=== PATIENT | female | born 1960 | race Caucasian/White ===

== ENCOUNTER → 2016-11-07 | Outpatient (CLI) | payer OTHER ==
--- NOTE | 2016-11-07 21:10 | DI ---
CERVICAL SPINE SERIES, 11/07/2016 9:18 AM: Clinical History: Cervical pain. Previous Exam: 07/24/2016. An upright lateral view and upright lateral flexion and extension views are submitted. The patient is status post anterior fusions at C4-5 and C5-6. There has been reabsorption of portions of the bone g raft cages at both levels in the fusions may not be solid. The cervical disc spaces are normal. There is anterior subluxation of C3 on C4 by 2 mm in the neutral and flexion position and this is reduced with extension indicating there is motion at this level. C1 articulates normally with C2 and the occi put. Prevertebral soft tissue planes are normal. Readin. Status post anterior fusions at C4-5 and C5-6. There has been progressive reabsorption of the bon e graft cages. The effusions may not be solid. 2. There is a normal disc space at C3-4 but there is anterior subluxation of C3 on C4 by 2 mm and th is is reduced with extension indicating there is motion at this level.
== END ==
LOC: MOB RAD 09:19
PROVIDERS: ATTEND Neurological Surgery
DX: M54.2 Cervicalgia (principal); Z98.1 Arthrodesis status
CPT/HCPCS: 72040

== ENCOUNTER → 2017-01-29 | Outpatient (CLI) | payer OTHER ==
--- NOTE | 2017-01-29 09:01 | DI ---
CERVICAL SPINE SERIES, 01/29/2017 7:28 AM: Clinical History: Status post cervical spinal fusion. Previous Exam: 07/24/2016; 11/07/2016. Upright AP and lateral and upright lateral flexion and extension views are submitted. The patient is status post anterior fusion at C4-5 and C5-6. The lucency surrounding the bone graft cage at C4-5 has resolved but the bone grafts themselves may not be fused. There is still a lucency surrounding the s uperior aspect of the fusion at C5-6 and this may represent delayed or nonunion. There is disc space narrowing at C3-4 and C6-7, and the C2-3 disc space is normal. There is anterior subluxation of C3 on C4 in the neutral and flexion positions and this is resolved with extension. Arthritic changes are p resent in the zygapophyseal joints bilaterally at C3-4. C1 articulates normally with C2 and the occip ut. Prevertebral soft tissue planes are normal. Readin. Status post anterior fusions at C4-5 and C5-6. The C5-6 fusion may not be solid. 2. There is disc space narrowing at C3-4 with evidence of motion at this level and with degenerative arthritic changes in the zygapophyseal joints bilaterally. 3. There is disc space narrowing at C6-7 without evidence of instability. The C2-3 disc space is nor mal.
== END ==
LOC: RAD 07:22
PROVIDERS: ATTEND Neurological Surgery
DX: Z47.89 Encounter for other orthopedic aftercare (principal); M48.02 Spinal stenosis, cervical region; G89.18 Other acute postprocedural pain; Z98.1 Arthrodesis status
CPT/HCPCS: 72050